=== PATIENT | female | born 1965 | race Caucasian/White ===

== ENCOUNTER 2017-10-11 09:35 | Emergency (ER) | payer OTHER ==
[~2017-10-11] VITALS: Ht 172.7 cm; Wt 65.7 kg
[~2017-10-11 09:35] MED LIST: DIAZ5TAB PO; DICL50 PO
[2017-10-11 09:45] VITALS: BP 140/89; PULSE 88; RESP 16; TEMP 97.7; O2SAT 97
[2017-10-11] MEDS ORDERED: DIAZ5TAB PO (09:55)
[2017-10-11] MEDS ORDERED: AZIT250T3 PO (10:16)
--- NOTE | 2017-10-11 10:16 | PD ---
HPI Chief Complaint: ENT Complaint Time Seen by Provider: 09:53 Travel History International Travel<30 days: No Contact w/Intl Traveler<30days: No Traveled to known affect area: No History of Present Illness HPI 51-year-old female here with left ear pain 2 days. Patient reports she had upper respiratory infection for the last 7-10 days. She now feels like her left ear is "clogged". Denies fever or chills. Reports the pain is constant, throbbing, nonradiating. No aggravating or alleviating factors. Symptoms severity moderate. 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 with tingling R leg ) ?: Not Menopausal: Yes Para: 0 Past Surgical History Gynecologic Surgery: Yes Hysterectomy: Yes Neurologic Surgery: Yes (Tumors removed from cervical spine) Other Surgery: Yes ("Tendon transfer"/Right lumpectomy) Social History Alcohol Use: No (denies) Tobacco Use: Yes (4-5 cigs a day) Substance Use: No Allergies-Medications (Allergen,Severity, Reaction): Coded Allergies: codeine (Unverified Allergy, Severe, ITCHY, 10/11/17) bee venom protein (honey bee) (Unverified Allergy, Mild, HIVES, 10/11/17) penicillin G (Unverified Allergy, Unknown, Throat closing , 10/11/17) Reported Meds & Prescriptions Reported Meds & Active Scripts Active Azithromycin 250 Mg Tab 250 Mg PO DIRECTED Take 2 tabs (500 mg) on day 1 then 1 tab daily x 4 days. Reported Diazepam 5 Mg Tab 5 Mg PO BID PRN Review of Systems Except as stated in HPI: all other systems reviewed are Neg General / Constitutional: No: Fever Eyes: No: Visual changes HENT: Positive: Earache Cardiovascular: No: Chest Pain or Discomfort Respiratory: No: Shortness of Breath Gastrointestinal: No: Abdominal Pain Genitourinary: No: Dysuria Physical Exam Narrative GENERAL: Alert and well-appearing 51-year-old female. SKIN: Warm and dry. No rash. HEAD: Normocephalic. EYES: No injection or drainage. Ears/nose/throat: Left TM erythema, bulging, loss of landmarks. No perforation. No canal swelling or drainage. Clear nasal discharge. Pharyngeal erythema without tonsillar hypertrophy or exudate. NECK: Supple, trachea midline. No meningismus. CARDIOVASCULAR: Regular rate and rhythm without murmurs, gallops, or rubs. RESPIRATORY: Breath sounds equal bilaterally. No accessory muscle use. GASTROINTESTINAL: Abdomen soft, non-tender, nondistended. MUSCULOSKELETAL: No cyanosis, or edema. Data Data Last Documented VS Vital Signs Date Time Temp Pulse Resp B/P (MAP) Pulse Ox O2 Delivery O2 Flow Rate FiO2 10/11/17 09:45 97.7 88 16 140/89 (106) 97 Orders Orders Ed Discharge Order (10/11/17 10:16) MDM Medical Decision Making Medical Screen Exam Complete: Yes Emergency Medical Condition: Yes Differential Diagnosis Otitis media, otitis externa, URI Narrative Course 31-year-old female here with left ear pain. On exam she has left TM erythema. She'll be treated for otitis media. Diagnosis Primary Impression: Otitis media Qualified Codes: H66.90 - Otitis media, unspecified, unspecified ear Referrals: [facility] Patient Instructions: General Instructions Departure Forms: Tests/Procedures Scripts Azithromycin (Azithromycin) 250 Mg Tab 250 MG PO DIRECTED for Infection, #6 TAB 0 Refills Take 2 tabs (500 mg) on day 1 then 1 tab daily x 4 days. Prov: Reanna Briones 10/11/17 Disposition: 01 DISCHARGE HOME Condition: Stable Reanna Briones Oct 11, 2017 10:16
== END 2017-10-11 10:29 | disposition home or self-care (01) ==
LOC: PHEFT 09:35
DX: H66.92 Otitis media, unspecified, left ear (principal); J45.909 Unspecified asthma, uncomplicated; Z72.0 Tobacco use
CPT/HCPCS: 99283

== ENCOUNTER 2017-11-22 11:01 | Emergency (ER) | payer OTHER ==
[~2017-11-22] VITALS: Ht 172.7 cm; Wt 67.2 kg
[~2017-11-22 11:01] MED LIST changes: +AZIT250T3 PO; -DICL50 PO
[2017-11-22 11:07] VITALS: BP 133/90; PULSE 102; RESP 16; TEMP 97.4; O2SAT 97
--- NOTE | 2017-11-22 12:14 | PD ---
HPI Chief Complaint: Dizziness Time Seen by Provider: 11:35 Travel History International Travel<30 days: No Contact w/Intl Traveler<30days: No Traveled to known affect area: No History of Present Illness HPI 51yo F here with multiple complaints. Said she has been dizzy since yesterday and it is more light headed. Said she has spine injury before and has decreased sensation in right side of her body for years. Pt denies any fever, cough, chest pain, sob, n/v, abdominal pain, new focal weakness or numbness. However, pt is demanding azithromycin for her flu and medication for her hemorrhoids. Said she has been bleeding from her hemorrhoids and she has a colonoscopy scheduled with Dr. Nelson. Also said her left ear is still clogged. 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 with tingling R leg ) Tetanus Vaccination: > 5 Years Influenza Vaccination: No ?: Not Menopausal: Yes Para: 0 Past Surgical History Gynecologic Surgery: Yes Hysterectomy: Yes Neurologic Surgery: Yes (Tumors removed from cervical spine) Other Surgery: Yes ("Tendon transfer"/Right lumpectomy) Social History Alcohol Use: No Tobacco Use: Yes (/2 ppd) Substance Use: No Allergies-Medications (Allergen,Severity, Reaction): Coded Allergies: codeine (Unverified Allergy, Severe, ITCHY, 11/22/17) bee venom protein (honey bee) (Unverified Allergy, Mild, HIVES, 11/22/17) penicillin G (Unverified Allergy, Unknown, Throat closing , 11/22/17) Reported Meds & Prescriptions Reported Meds & Active Scripts Active Anusol-Hc Rectal (Hydrocortisone Rectal) 2.5% Cream 1 Applic RECTAL BID PRN 10 Days Reported Diazepam 5 Mg Tab 5 Mg PO BID PRN Review of Systems Except as stated in HPI: all other systems reviewed are Neg Physical Exam Narrative GENERAL: 51yo F not in distress. SKIN: Focused skin assessment warm/dry. HEAD: Atraumatic. Normocephalic. EYES: Pupils equal and round at 3mm bilaterally. ENT: TM wnl bilaterally. Left ear has mild edema in ear canal. NECK: Trachea midline. No JVD. CARDIOVASCULAR: Regular rate and rhythm. No murmur appreciated. RESPIRATORY: No accessory muscle use. Clear to auscultation. Breath sounds equal bilaterally. GASTROINTESTINAL: Abdomen soft, non-tender, nondistended. No rebound tenderness or guarding. RECTAL: +External hemorrhoid. Soft. Not thrombosed. MUSCULOSKELETAL: No obvious deformities. No clubbing. No cyanosis. No edema. NEUROLOGICAL: Awake and alert. No obvious cranial nerve deficits. Motor grossly within normal limits in all extremities. Decreased sensation in right side that is not new. Normal speech. Data Data Last Documented VS Vital Signs Date Time Temp Pulse Resp B/P (MAP) Pulse Ox O2 Delivery O2 Flow Rate FiO2 11/22/17 12:31 83 16 106/77 (87) 87 16 107/67 (80) 96 16 113/79 (90) 11/22/17 11:43 Room Air 11/22/17 11:07 97.4 97 Orders Orders Electrocardiogram (11/22/17 12:01) Basic Metabolic Panel (Bmp) (11/22/17 12:01) Complete Blood Count With Diff (11/22/17 12:01) Magnesium (Mg) (11/22/17 12:01) Troponin I (11/22/17 12:01) Act Partial Throm Time (Ptt) (11/22/17 12:01) Prothrombin Time / Inr (Pt) (11/22/17 12:01) Orthostatic Vital Signs (11/22/17 12:01) Influenzae A/B Antigen (11/22/17 12:17) Bhcg Screen Qualitative (11/22/17 12:17) [facility] Medical Decision Making Medical Screen Exam Complete: Yes Emergency Medical Condition: Yes Interpretation(s) EKG: NSR 84bpm. Normal axis. TWI V2. No ST segment elevation or depression. Differential Diagnosis Symptomatic anemia vs. dehydration vs. electrolyte abnormality Narrative Course 51yo F here with dizziness since yesterday. However, pt is refusing blood work and said she just wants azithromycin and medication for her hemorrhoid. Said she had her blood drawn in a bus 2 days ago. Pt was seen here 10/11 and I spoke to the provider who saw her and she was given azithromycin because she had cough, URI symptoms as well as signs of otitis media on left. Pt is requesting I check the flu so influenza order. After much discussion, pt asking how many days I can write her for work. Pt has been here multiple times for minor complaints. Said she has PMD but does not like her. Will prescribe anusol for hemorrhoid pain but I cannot evaluate her dizziness without blood work and she will sign out against medical advice. AMA: The risks of leaving against medical advice without further evaluation treatment were discussed with the patient. These risks include cardiac dysfunction, cardiac dysrhythmia, possible heart attack, possible stroke or . The patient indicated understanding of these risks and appeared to have the capacity to make this decision. Pt advised to follow up with her GI physician Dr. Nelson and obtain colonoscopy as schedule. Return precautions given. Pt now said she doesnt even want to wait for her influenza results and is leaving now. Diagnosis Primary Impression: Dizziness Additional Impression: External hemorrhoid Patient Instructions: General Instructions Departure Forms: Tests/Procedures Additional Instructions: Please follow up with Dr. Nelson as soon as you can. Please return to the ED if symptoms worsen. Med/Other Pt SpecificInfo: Prescription(s) given Scripts Hydrocortisone Rectal (Anusol-Hc Rectal) 2.5% Cream 1 APPLIC RECTAL BID Y for ITCHING/INFLAMMATION for 10 Days, #30 GM 0 Refills Prov: Pattie Bhakta DO 11/22/17 Disposition: 07 AGAINST MEDICAL ADVICE Condition: Stable Pattie Bhakta DO Nov 22, 2017 12:14
[2017-11-22] MEDS ORDERED: HYDR2.5%T RECTAL (12:26)
[2017-11-22 12:31] VITALS: BP_SYST 106; BP_SYST 107; BP_SYST 113; BP_DIAS 67; BP_DIAS 77; BP_DIAS 79; RESP 16
--- NOTE | 2017-11-23 00:07 | EKG ---
Date Performed: 11/22/2017 Time Performed: 12:12:01 PTAGE: 51 years EKG: Sinus rhythm POSSIBLE RIGHT VENTRICULAR CONDUCTION DELAY BORDERLINE ECG NO PREVIOUS TRACING DOCTOR: Armando Pascal Interpretating Date/Time 11/23/2017 00:07:30
== END 2017-11-22 12:58 | disposition left against medical advice (07) ==
LOC: PHED 11:01
DX: R42 Dizziness and giddiness (principal); K64.4 Residual hemorrhoidal skin tags; R94.31 Abnormal electrocardiogram [ECG] [EKG]; J45.909 Unspecified asthma, uncomplicated; F41.9 Anxiety disorder, unspecified; F17.210 Nicotine dependence, cigarettes, uncomplicated; Z88.0 Allergy status to penicillin; Z88.8 Allergy status to other drugs, medicaments and biological substances; Z79.899 Other long term (current) drug therapy
CPT/HCPCS: 87804; 93005; 99284